=== PATIENT | male | born 1955 | race Caucasian/White ===

== ENCOUNTER 2017-01-07 08:23 | Emergency (ER) | payer OTHER ==
[2017-01-07 08:39] VITALS: BP 129/81
--- NOTE | 2017-01-07 08:56 | UC ---
Throat Pain/Nasal Magen HPI - HPI Summary HPI Summary: SEVEN DAYS OF SINUS CONGESTION, SORE THROAT, HEADACHE, COUGH. FACIAL PRESSURE MOSTLY ON RIGHT SIDE OF FACE. - History of Current Complaint Chief Complaint: UCRespiratory Stated Complaint: SINUS COMPLAINT Time Seen by Provider: 01/07/17 08:26 Hx Obtained From: Patient Onset/Duration: Gradual Onset, Lasting Weeks, Still Present Severity: Moderate Cough: Nonproductive Associated Signs & Symptoms: Positive: Hoarseness, Sinus Discomfort, Nasal Discharge, Fever - Epiglottits Risk Factors Epiglottis Risk Factors: Negative - Allergies/Home Medications Allergies/Adverse Reactions: Allergies Allergy/AdvReac Type Severity Reaction Status Date / Time Oxycodone [From Percocet] Allergy Intermediate Flushing Verified 01/07/17 08:28 Prednisone AdvReac Hypotension, Verified 01/07/17 08:28 Tachycardia Home Medications: Home Medications Pseudoephedrine TAB* [Sudafed TAB*] 30 mg PO Q4H PRN 01/07/17 [History Confirmed 01/07/17] PMH/Surg Hx/FS Hx/Imm Hx Previously Healthy: Yes - Surgical History Surgical History: None - Family History Known Family History: Positive: Diabetes, Other - son has asthma Negative: Cardiac Disease - Social History Occupation: Employed Full-time Lives: With Family Alcohol Use: Occasionally Substance Use Type: None Smoking Status (MU): Never Smoked Tobacco - Immunization History Most Recent Influenza Vaccination: Not the Season Review of Systems Constitutional: Fever Skin: Negative Eyes: Negative ENT: Sore Throat, Ear Ache, Nasal Discharge, Sinus Congestion, Sinus Pain/ Tenderness Respiratory: Cough Cardiovascular: Negative Gastrointestinal: Negative Genitourinary: Negative Motor: Negative Neurovascular: Negative Musculoskeletal: Negative Neurological: Negative Psychological: Negative All Other Systems Reviewed And Are Negative: Yes Physical Exam Triage Information Reviewed: Yes Appearance: No Pain Distress, Well-Nourished, Ill-Appearing - MILDLY Vital Signs: Initial Vital Signs Temp 99.4 F 01/07/17 08:32 Pulse 68 01/07/17 08:32 Resp 18 01/07/17 08:32 BP 129/81 01/07/17 08:32 Pulse Ox 99 01/07/17 08:32 Vital Signs Reviewed: Yes Eyes: Positive: Conjunctiva Clear, Discharge - CLEAR R>L ENT: Positive: Hearing grossly normal, Pharyngeal erythema, Nasal congestion, TM bulging, TM dull Dental Exam: Normal Neck exam: Normal Neck: Positive: Supple, Nontender, No Lymphadenopathy Respiratory Exam: Other - COUGH Respiratory: Positive: Chest non-tender, Lungs clear, Normal breath sounds, No respiratory distress, No accessory muscle use Cardiovascular Exam: Normal Cardiovascular: Positive: RRR, No Murmur, Pulses Normal Abdominal Exam: Normal Musculoskeletal Exam: Normal Musculoskeletal: Positive: Strength Intact, ROM Intact Neurological Exam: Normal Psychological Exam: Normal Skin Exam: Normal Throat Pain/Nasal Course/Dx - Differential Dx/Diagnosis Differential Diagnosis/HQI/PQRI: Pharyngitis, Sinusitis, Tonsillitis, URI Provider Diagnoses: SINUSITIS Discharge - Discharge Plan Condition: Stable Disposition: HOME Prescriptions: Amoxicillin/Clavulanate TAB* [Augmentin TAB 875*] 875 mg PO BID #20 tab Benzonatate CAP* [Tessalon 100 MG CAP*] 100 mg PO TID #15 cap Patient Education Materials: Sinusitis (ED) Referrals: John Pérez MD [Primary Care Provider] -
== END 2017-01-07 08:54 | disposition home or self-care (01) ==
LOC: UCCORT 08:23
DX: J32.9 Chronic sinusitis, unspecified (principal); Z88.5 Allergy status to narcotic agent
CPT/HCPCS: 99212; G0463

== ENCOUNTER 2017-04-25 08:07 | Emergency (ER) | payer OTHER ==
[2017-04-25 08:27] VITALS: BP 108/68
--- NOTE | 2017-05-16 19:14 | ED ---
Tata Laughlin Edward, scribed for Mark Rich MD on 04/25/17 at 0815 . Syncope/Near Syncope - HPI Summary HPI Summary: 61 y/o male presents to the ED s/p near syncopal episode minutes [employer]. Pt is asymptomatic at the moment. Pt felt faint and diaphoretic while standing by his daughters bed, who is due for surgery. Denies nausea. Pt felt better after lying down. The doctor was going over the risks of the surgery when it all started to hit. 1 year ago the pt had a similar episode after his son spilt his chin open. Another time the pt had a similar episode when his hemorrhaged at home. PMHx lupus (dx 4 years ago). Medications reviewed. Denies CP. - History Of Current Complaint Hx Obtained From: Patient Onset/Duration: Lasting Minutes, Resolved Timing: Frequency Of Episodes - 1 Context: Witnessed Activity At Onset: Other - standing by daughter's bed Associated Head Trauma: No Aggravating Factor(s): Nothing Alleviating Factor(s): Rest Associated Signs And Symptoms: Diaphoresis - Allergies/Home Medications Allergies/Adverse Reactions: Allergies Allergy/AdvReac Type Severity Reaction Status Date / Time Oxycodone [From Percocet] Allergy Intermediate Flushing Verified 01/07/17 08:28 Prednisone AdvReac Hypotension, Verified 01/07/17 08:28 Tachycardia PMH/Surg Hx/FS Hx/Imm Hx Previously Healthy: No Endocrine/Hematology History: Reports: Other Endocrine/Hematological Disorders - Lupus Respiratory History: Reports: Hx Asthma, Hx Chronic Obstructive Pulmonary Disease (COPD) - Family History Known Family History: Positive: Diabetes, Other - son has asthma Negative: Cardiac Disease - Social History Alcohol Use: Occasionally Hx Substance Use: No Substance Use Type: Reports: None Hx Tobacco Use: No Smoking Status (MU): Never Smoked Tobacco Review of Systems Positive: Skin Diaphoresis Eyes: Negative ENT: Negative Cardiovascular: Negative Respiratory: Negative Negative: Nausea Genitourinary: Negative Musculoskeletal: Negative Skin: Negative Positive: Syncope - Near syncope Psychological: Normal All Other Systems Reviewed And Are Negative: Yes Physical Exam - Summary Physical Exam Summary: Appearance: Well-appearing, Well-nourished. No symptoms sitting at 30 degress in a stretcher. Skin: Warm, Dry, No rash Eyes: Normal, PERRL, EOMI, sclera anicteric ENT: Normal Neck: Supple, nontender. No JVD. Respiratory: Clear to auscultation Cardiovascular: S1, S2, no murmur, no rub, no gallop Abdomen: Soft, nontender, no organomegaly Bowel sounds: Present Musculoskeletal: Normal, Strength/ROM Intact, no edema, pulses symmetrical Neurological: Normal, A&Ox3, cranial nerves II-XII WNL, follows commands, gait not tested, sensation intact to pin and light touch Psychiatric: affect normal, behavior appropriate, dressed appropriately, judgment intact Triage Information Reviewed: Yes Vital Signs Reviewed: Yes Course/Dx Assessment/Plan: 61 y/o male presents to the ED s/p near syncopal episode minutes [employer]. Pt is asymptomatic at the moment. Pt felt faint and diaphoretic while standing by his daughters bed, who is due for surgery. Denies nausea. Pt felt better after lying down. The doctor was going over the risks of the surgery when it all started to hit. 1 year ago the pt had a similar episode after his son spilt his chin open. Another time the pt had a similar episode when his hemorrhaged at home. PMHx lupus (dx 4 years ago). Medications reviewed. Denies CP. In the ED course the pt refused an EKG and labs. Glucose 121. Pt will be d/c home. - Diagnoses Provider Diagnoses: Vasovagal near syncope Discharge - Discharge Plan Condition: Stable Disposition: HOME Patient Education Materials: Syncope (ED) Referrals: John Pérez MD [Primary Care Provider] - () Additional Instructions: lay down for symptoms The documentation as recorded by the Tata sanders Edward accurately reflects the service I personally performed and the decisions made by me, Mark Rich MD.
== END 2017-04-25 08:26 | disposition home or self-care (01) ==
LOC: ED 08:07
DX: R55 Syncope and collapse (principal); Z87.39 Personal history of other diseases of the musculoskeletal system and connective tissue
CPT/HCPCS: 99281

== ENCOUNTER 2019-05-05 08:35 | Emergency (ER) | payer OTHER ==
[2019-05-05 08:52] VITALS: BP 134/85
--- NOTE | 2019-05-05 09:52 | UC ---
Respiratory Complaint HPI - HPI Summary HPI Summary: cough / chest tightness x 2 weeks started after he cleaned the stove, + sob, symptoms are moderate 5 out of 10 improved with albuterol nebulizer , worse with deep breathing + cough , chest congestion , no fever, no chills - History of Current Complaint Chief Complaint: UCGeneralIllness Stated Complaint: RX REQUEST Time Seen by Provider: 05/05/19 08:49 Hx Obtained From: Patient Onset/Duration: Gradual Onset, Lasting Weeks - 2, Still Present Timing: Constant Severity Initially: Moderate Severity Currently: Mild Pain Intensity: 0 Pain Scale Used: 0-10 Numeric Character: Cough: Nonproductive Aggravating Factors: Allergens, Deep Breaths Alleviating Factors: Bronchodilator Associated Signs And Symptoms: Positive: Wheezing, URI, Nasal Congestion. Negative: Fever, Chills, Pleuritic Chest Pain, Hemoptysis, Dizziness, Calf Pain , Calf Swelling - Allergies/Home Medications Allergies/Adverse Reactions: Allergies Allergy/AdvReac Type Severity Reaction Status Date / Time acetaminophen [From Percocet] Allergy Flushing Verified 05/05/19 08:44 oxycodone [From Percocet] Allergy Flushing Verified 05/05/19 08:44 prednisone AdvReac Tachycardia Verified 05/05/19 08:44 Home Medications: Home Medications Cyclobenzaprine TAB* [Flexeril 10 MG TAB*] 10 mg PO TID PRN 05/05/19 [History Confirmed 05/05/19] diphenhydrAMINE HCl [Benadryl Allergy] 25 mg PO BEDTIME 05/05/19 [History Confirmed 05/05/19] PMH/Surg Hx/FS Hx/Imm Hx Respiratory History: COPD, Asthma - Surgical History Surgical History: None - Family History Known Family History: Positive: Diabetes, Other - son has asthma Negative: Cardiac Disease - Social History Alcohol Use: Occasionally Substance Use Type: None Smoking Status (MU): Never Smoked Tobacco - Immunization History Most Recent Influenza Vaccination: Not the 2016/2016 Season Review of Systems All Other Systems Reviewed And Are Negative: Yes Constitutional: Positive: Negative Skin: Positive: Negative Eyes: Positive: Negative ENT: Positive: Nasal Discharge Respiratory: Positive: Shortness Of Breath, Cough Is Patient Immunocompromised?: No Physical Exam Triage Information Reviewed: Yes Appearance: Well-Appearing, No Pain Distress, Well-Nourished Vital Signs: Initial Vital Signs Temp 98.7 F 05/05/19 08:49 Pulse 83 05/05/19 08:49 Resp 16 05/05/19 08:49 BP 134/85 05/05/19 08:49 Pulse Ox 97 05/05/19 08:49 Vital Signs Reviewed: Yes Eye Exam: Normal Eyes: Positive: Conjunctiva Clear ENT: Positive: Normal ENT inspection, Hearing grossly normal, Pharynx normal Neck exam: Normal Neck: Positive: Supple, Nontender, No Lymphadenopathy Respiratory: Positive: Chest non-tender, Normal breath sounds, No respiratory distress. Negative: Crackles, Rhonchi, Wheezing Cardiovascular: Positive: RRR, No Murmur, Pulses Normal Skin Exam: Normal Respiratory Course/Dx - Differential Dx/Diagnosis Provider Diagnosis: Bronchitis Discharge ED - Sign-Out/Discharge Documenting (check all that apply): Patient Departure All imaging exams completed and their final reports reviewed: No Studies - Discharge Plan Condition: Stable Disposition: HOME Prescriptions: Albuterol 2.5MG/3ML (0.083%)* [Ventolin 2.5 MG/3 ML NEB.MIRELLA*] 2.5 mg INH Q6H PRN #1 leonora PRN Reason: Shortness Of Breath Albuterol HFA INHALER* [Ventolin HFA Inhaler*] 1 puff INH Q6H PRN #1 mdi PRN Reason: Wheezing Fluticasone-Salmeterol 250-50* [Advair Diskus 250-50*] 1 puff INH BID #1 diskus Patient Education Materials: Acute Bronchitis (ED), COPD (Chronic Obstructive Pulmonary Disease) (ED) Referrals: No Primary Care Phys,NOPCP [Primary Care Provider] - If Needed - Billing Disposition and Condition Condition: STABLE Disposition: Home
== END 2019-05-05 09:06 | disposition home or self-care (01) ==
LOC: UCCORT 08:35
DX: J44.9 Chronic obstructive pulmonary disease, unspecified (principal); R09.81 Nasal congestion; Z88.5 Allergy status to narcotic agent; Z88.8 Allergy status to other drugs, medicaments and biological substances
CPT/HCPCS: 99212; G0463